=== PATIENT | male | born 1990 | race Two or more races ===

== ENCOUNTER 2017-06-29 16:42 | Emergency (ER) | payer SELFPAY ==
[~2017-06-29] VITALS: Ht 175.3 cm; Wt 82.0 kg
[2017-06-29 16:54] VITALS: BP 134/77
[2017-06-29] MEDS ORDERED: IBUPROFEN 600MG TABLET PO ONE (18:15)
[2017-06-29] MEDS ORDERED: BACITRACIN ZINC OINT UDPKT TOP ONE (18:15)
== END 2017-06-29 18:35 | disposition home or self-care (01) ==
LOC: ER 16:42
DX: T25.222A Burn of second degree of left foot, initial encounter (principal); F12.10 Cannabis abuse, uncomplicated; X11.8XXA Contact with other hot tap-water, initial encounter; Y93.89 Activity, other specified; Y92.89 Other specified places as the place of occurrence of the external cause; Y99.8 Other external cause status
CPT/HCPCS: 99283